=== PATIENT | female | born 1960 | race Asian ===

== ENCOUNTER 2024-04-29 15:52 | Emergency (ER) | payer MEDICAID, OTHER ==
[~2024-04-29] VITALS: Ht 167.6 cm; Wt 112.0 kg
[2024-04-29 16:12] VITALS: BP 134/83; PULSE 72; RESP 18; TEMP 97.9
[2024-04-29] MEDS ORDERED: VALA500T42 PO (17:28)
== END 2024-04-29 18:07 | disposition home or self-care (01) ==
LOC: EMS 15:58
DX: B02.9 Zoster without complications (principal); Z88.0 Allergy status to penicillin
CPT/HCPCS: 99283